=== PATIENT | male | born 1975 | race Hispanic/Latino ===

== ENCOUNTER 2018-08-26 11:14 | Emergency (ER) | payer OTHER ==
[2018-08-26 11:14] VITALS: BMI 25.8
[2018-08-26 11:30] VITALS: BP 123/85; PULSE 81; RESP 16; TEMP 98.6; O2SAT 96
--- NOTE | 2018-08-26 14:53 | RAD ---
Date of service: 08/26/2018 PROCEDURE: Left Wrist Radiographs. HISTORY: left wrist swelling s/p injury COMPARISON: None. FINDINGS: BONES: Normal. No fracture. JOINTS: Normal. No dislocation. SOFT TISSUES: Mild soft tissue swelling about the carpal bones. OTHER FINDINGS: None. IMPRESSION: Soft tissue swelling without acute articular or osseous abnormality.
--- NOTE | 2018-08-26 16:16 | ED PDOC ---
HPI: Psych/Substance Abuse Chief Complaint (Provider): Alcohol Ingestion History Per: Patient History/Exam Limitations: no limitations Onset/Duration Of Symptoms: Days (x1) Current Symptoms Are (Timing): Still Present Additional Complaint(s): 43 year old male with a hx of alcohol abuse presents to the ED for evaluation of nausea and vomiting for the past day after drinking one case of beer everyday for the last 5 days. He states his last drink was yesterday afternoon and has since been nauseous with multiple episodes of vomit associated with mild anxiety. Additionally, pt is complaining of left wrist pain after falling at work last week, worse with movement. Otherwise denies fever, chills, shortness of breath, chest pain, seizures, headache, vision changes, dizziness, abdominal pain, hematemesis, diarrhea, numbness, weakness, and paresthesias. PMD: [facility] <Ana Best - Last Filed: 08/27/18 23:59> <Adele Diez - Last Filed: 08/28/18 17:23> Time Seen by Provider: 08/26/18 12:20 Chief Complaint (Nursing): Alcohol Ingestion Supervising Attending Note - Attestation: I have personally seen and examined this patient.: No I have reviewed all pertinent clinical information, including history, physical exam and plan: Yes <Adele Diez - Last Filed: 08/28/18 17:23> Past Medical History Reviewed: Historical Data, Nursing Documentation, Vital Signs Vital Signs: Last Vital Signs Temp 98.6 F 08/26/18 11:28 Pulse 81 08/26/18 11:28 Resp 16 08/26/18 11:28 BP 123/85 08/26/18 11:28 Pulse Ox 96 08/26/18 11:28 - Medical History PMH: No Chronic Diseases Denies: Chronic Kidney Disease - Surgical History Surgical History: Hernia Repair (Yes: Right inguinal repair) - Family History Family History: States: Diabetes (mother) - Social History Ex-Smoker (has not smoked in the last 12 months): Yes (20 years) Alcohol: Other (hx alc abuse) Drugs: Denies - Immunization History Hx Tetanus Toxoid Vaccination: No Hx Influenza Vaccination: (not up to date) Hx Pneumococcal Vaccination: (not up to date) <Ana Best - Last Filed: 08/27/18 23:59> Vital Signs: Last Vital Signs Temp 98.6 F 08/26/18 11:28 Pulse 81 08/26/18 11:28 Resp 16 08/26/18 11:28 BP 123/85 08/26/18 11:28 Pulse Ox 96 08/28/18 00:00 <DiezAdele F - Last Filed: 08/28/18 17:23> - Home Medications Home Medications: Ambulatory Orders Medication Instructions Recorded Ondansetron ODT [Zofran ODT] 1 odt PO BID PRN #6 odt 03/31/17 Famotidine [Pepcid] 20 mg PO BID #14 tab 08/26/18 - Allergies Allergies/Adverse Reactions: Allergies Allergy/AdvReac Type Severity Reaction Status Date / Time No Known Allergies Allergy Verified 03/31/17 15:02 Review of Systems ROS Statement: Except As Marked, All Systems Reviewed And Found Negative Constitutional: Negative for: Fever, Chills Eyes: Negative for: Vision Change Cardiovascular: Negative for: Chest Pain Respiratory: Negative for: Shortness of Breath Gastrointestinal: Positive for: Nausea, Vomiting. Negative for: Abdominal Pain, Diarrhea, Hematemesis Musculoskeletal: Positive for: Other (left wrist pain worse with movement) Neurological: Negative for: Weakness, Numbness, Seizures, Headache, Dizziness, Other (paresthesias) Psych: Positive for: Anxiety (mid) <Ana Best - Last Filed: 08/27/18 23:59> Physical Exam - Reviewed Nursing Documentation Reviewed: Yes Vital Signs Reviewed: Yes - Physical Exam Appears: Positive for: No Acute Distress Head Exam: Positive for: ATRAUMATIC, NORMOCEPHALIC Skin: Positive for: Normal Color, Warm, Dry Eye Exam: Positive for: Normal appearance ENT: Positive for: Normal ENT Inspection Neck: Positive for: Normal, Painless ROM, Supple Cardiovascular/Chest: Positive for: Regular Rate, Rhythm Respiratory: Positive for: Normal Breath Sounds. Negative for: Accessory Muscle Use, Respiratory Distress Gastrointestinal/Abdominal: Positive for: Normal Exam, Soft. Negative for: Tenderness Extremity: Positive for: Normal ROM Neurologic/Psych: Positive for: Alert, Oriented (x3), Other (slight tremor of right hand with arms outstretched; no resting tremors) Comments: CIWA score: 4 <Ana Best - Last Filed: 08/27/18 23:59> - ECG O2 Sat by Pulse Oximetry: 96 (RA) Pulse Ox Interpretation: Normal <Ana Best - Last Filed: 08/27/18 23:59> Medical Decision Making Medical Decision Making: Time: 1252 Initial Impression: left wrist pain, alcohol abuse, nausea, vomiting Initial Plan: --Zofran ODT 4mg PO --Left wrist XR 1451 Left Wrist XR FINDINGS: BONES: Normal. No fracture. JOINTS: Normal. No dislocation. SOFT TISSUES: Mild soft tissue swelling about the carpal bones. OTHER FINDINGS: None. IMPRESSION: Soft tissue swelling without acute articular or osseous abnormality Pt evaluated by Dr. Mora who agrees with plan to discharge home. 1524 Beltran bandage applied to pts left wrist by RN. Pt given script for Pepcid and advised to increase his fluid intake at home. Instructed to follow up with PMD in the next two days or return to ED if symptoms persist / worsen. Scribe Attestation: Documented by Anuradha Bernard, acting as a scribe for Ana Best PA-C. Provider Scribe Attestation: All medical record entries made by the Scribe were at my direction and personally dictated by me. I have reviewed the chart and agree that the record accurately reflects my personal performance of the history, physical exam, medical decision making, and the department course for this patient. I have also personally directed, reviewed, and agree with the discharge instructions and disposition. <Ana Best - Last Filed: 08/27/18 23:59> Disposition - Disposition Disposition: Routine/Home Disposition Time: 15:00 <Ana Best - Last Filed: 08/27/18 23:59> <Adele Diez - Last Filed: 08/28/18 17:23> - Clinical Impression Clinical Impression: Nausea & vomiting, Alcohol abuse - Disposition Condition: IMPROVED Additional Instructions: Take pepcid twice daily x 1 week Stop drinking alcohol Increase fluids Followup with primary doctor within 2 days Return to ED if symptoms persist or worsen Prescriptions: Famotidine [Pepcid] 20 mg PO BID #14 tab Instructions: Nausea and Vomiting, Adult (DC) Forms: [employer] (Sinhala), [facility] School/Work Excuse
== END 2018-08-26 15:20 | disposition home or self-care (01) ==
LOC: H.ER 11:14
DX: F10.10 Alcohol abuse, uncomplicated (principal); R11.2 Nausea with vomiting, unspecified; M25.532 Pain in left wrist; W19.XXXA Unspecified fall, initial encounter; Y99.0 Civilian activity done for income or pay